=== PATIENT | female | born 1955 | race Two or more races ===

== ENCOUNTER → 2016-09-08 | Outpatient (CLI) | payer OTHER ==
[~2016-09-08] MED LIST: SYNT125T OR
[2016-09-08 21:37] LABS: ALBUMIN 4.1 GM/DL (3.2-5.2); ALBUMIN/GLOBULIN RATIO 1.28 (1.00-1.93); ALKALINE PHOSPHATASE 117 U/L (45-117); ALT/SGPT 66 U/L (12-78); ANION GAP 6 MEQ/L (8-16); AST/SGOT 40 U/L (15-37); BILIRUBIN,TOTAL 0.3 MG/DL (0.2-1.0); BLOOD UREA NITROGEN 13 MG/DL (7-18); CARBON DIOXIDE LEVEL 31 MEQ/L (21-32); CHLORIDE LEVEL 107 MEQ/L (98-107); CHOLESTEROL LEVEL 234 MG/DL (<200); CREATININE FOR GFR 0.74 MG/DL (0.55-1.02); FREE T4 0.84 NG/DL (0.76-1.46); GLOMERULAR FILTRATION RATE > 60.0 (>45); GLUCOSE, FASTING 92 MG/DL (80-110); POTASSIUM SERUM 4.2 MEQ/L (3.5-5.1); SODIUM LEVEL 144 MEQ/L (136-145); TOTAL PROTEIN 7.3 GM/DL (6.4-8.2); TRIGLYCERIDES LEVEL 139 MG/DL (<150)
== END ==
LOC: M WUC 15:50
PROVIDERS: ATTEND Internal Medicine
DX: E78.00 Pure hypercholesterolemia, unspecified (principal); R94.5 Abnormal results of liver function studies

== ENCOUNTER 2016-10-10 17:37 | Emergency (ER) | payer OTHER ==
[~2016-10-10] VITALS: Ht 160 cm; Wt 69.9 kg
[2016-10-10] MEDS ORDERED: LEVO100T5 (17:56)
[2016-10-10] MEDS ORDERED: ESCI10TA2 (17:56)
[2016-10-10] MEDS ORDERED: LOSA25TA8 (17:56)
[2016-10-10] MEDS ORDERED: ATOR1TAB19 (17:56)
[2016-10-10] MEDS ORDERED: ASPI81TA85 PO (17:56)
[2016-10-10] MEDS: ACETAMINOPHEN TAB 650MG DOSE (2X325MG) PO ONE (19:45)
[2016-10-10 19:59] LABS: BASO % 0.7 % (0.0-1.0); EOS # 0.3 K/mm3 (0.0-0.50); EOS % 5.5 % (0.0-3.0); LARGE UNSTAINED CELL # 0.2 K/mm3 (0.0-0.4); LARGE UNSTAINED CELL % 2.7 % (0.0-4.0); LYMPH # 2.1 K/mm3 (1.5-4.5); LYMPH % 34.3 % (24.0-44.0); MEAN CORPUSCULAR HEMOGLOBIN 29.2 pg (27.0-33.0); MEAN CORPUSCULAR HGB CONC 33.7 g/dl (32.0-36.5); MEAN CORPUSCULAR VOLUME 86.5 fl (80.0-96.0); MONO # 0.4 K/mm3 (0.0-0.8); MONO % 6.8 % (0.0-5.0); NEUTROPHILS # 3.1 K/mm3 (1.8-7.7); NEUTROPHILS % 49.9 % (36.0-66.0); PLATELET COUNT, AUTOMATED 218 k/mm3 (150-450); RED CELL DISTRIBUTION WIDTH 12.6 % (11.5-14.5); WHITE BLOOD COUNT 6.1 K/mm3 (4.0-10.0)
[2016-10-10 20:07] LABS: ALBUMIN 4.3 GM/DL (3.2-5.2); ALBUMIN/GLOBULIN RATIO 1.26 (1.00-1.93); ALKALINE PHOSPHATASE 127 U/L (45-117); ALT/SGPT 50 U/L (12-78); ANION GAP 10 MEQ/L (8-16); AST/SGOT 28 U/L (15-37); BILIRUBIN,DIRECT 0.1 MG/DL (0.0-0.2); BILIRUBIN,TOTAL 0.3 MG/DL (0.2-1.0); BLOOD UREA NITROGEN 23 MG/DL (7-18); CALCIUM LEVEL 9.1 MG/DL (8.8-10.2); CARBON DIOXIDE LEVEL 29 MEQ/L (21-32); CHLORIDE LEVEL 104 MEQ/L (98-107); CREATININE FOR GFR 0.82 MG/DL (0.55-1.02); GLOMERULAR FILTRATION RATE > 60.0 (>45); GLUCOSE, FASTING 88 MG/DL (80-110); POTASSIUM SERUM 4.1 MEQ/L (3.5-5.1); SODIUM LEVEL 143 MEQ/L (136-145); TOTAL PROTEIN 7.7 GM/DL (6.4-8.2)
[2016-10-10 20:34] LABS: ERYTHROCYTE SEDIMENTATION RATE 16 mm/hr (0-30)
[2016-10-10] MEDS: NS 1,000 ML IV ONE (20:45)
--- NOTE | 2016-10-10 21:40 | REPUSA ---
CLINICAL HISTORY: Headache. TECHNIQUE: Multiple axial CT images were obtained through brain without IV contrast material. COMMENTS: Compared to 04/16/16 study. The study shows normal configuration of sella turcica. 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 There are no intra or extra-axial collections. There is no mass effect or midline shift. There is no evidence of hematoma formation. No hydrocephalus is present. The ventricles are symmetrical. No abnormal calcifications are present. IMPRESSION: No acute intracranial pathology. 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 No interval change. Thank you for your kind referral of this patient.
[2016-10-10 23:29] VITALS: BP 111/77
--- NOTE | 2016-10-11 09:38 | REP ---
Chest x-ray: Two views. History: Dizziness. Intermittent chest pain. Findings: The lungs are well inflated and clear. Pleural angles are sharp. Heart is not felt to be enlarged. Pulmonary vasculature is not increased. No infiltrate is seen. There are minimal degenerative changes in the thoracic spine. EKG electrodes are seen. Impression: No active disease. Signed by Vu Lemus MD 10/11/2016 09:39 A
--- NOTE | 2016-10-11 19:53 | ECGEPIP ---
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
== END 2016-10-10 23:45 | disposition home or self-care (01) ==
LOC: M ED 18:55
DX: R51 Headache (principal); R42 Dizziness and giddiness; R07.9 Chest pain, unspecified

== ENCOUNTER → 2019-02-17 | Outpatient (REF) | payer MEDICARE, OTHER, SELFPAY ==
[~2019-02-17] MED LIST changes: +ASPI81TA85 PO; +ATOR1TAB19; +ESCI10TA2; +LEVO100T5; +LOSA25TA14
[2019-02-17 19:53] LABS: ALBUMIN 4.3 GM/DL (3.2-5.2); ALT/SGPT 67 U/L (12-78); BILIRUBIN,TOTAL 0.5 MG/DL (0.2-1.0); BLOOD UREA NITROGEN 16 MG/DL (7-18); CALCIUM LEVEL 9.7 MG/DL (8.8-10.2); CARBON DIOXIDE LEVEL 32 MEQ/L (21-32); CHLORIDE LEVEL 110 MEQ/L (98-107); CREATININE FOR GFR 0.79 MG/DL (0.55-1.30); GLOMERULAR FILTRATION RATE > 60.0 (>45); GLUCOSE, FASTING 77 MG/DL (70-100); POTASSIUM SERUM 4.6 MEQ/L (3.5-5.1); SODIUM LEVEL 146 MEQ/L (136-145); TOTAL PROTEIN 7.5 GM/DL (6.4-8.2)
[2019-02-17 19:57] LABS: BASO % 0.6 % (0.0-1.0); EOS # 0.4 10^3/uL (0.0-0.50); EOS % 6.5 % (0.0-3.0); HEMATOCRIT 39.9 % (36.0-47.0); HEMOGLOBIN 13.1 g/dl (12.0-15.5); LYMPH # 1.8 10^3/uL (1.5-4.5); LYMPH % 27.5 % (24.0-44.0); MEAN CORPUSCULAR HGB CONC 32.8 g/dl (32.0-36.5); MEAN CORPUSCULAR VOLUME 91.3 fl (80.0-96.0); MONO # 0.7 10^3/uL (0.0-0.8); MONO % 10.7 % (0.0-5.0); NEUTROPHILS # 3.5 10^3/uL (1.8-7.7); NEUTROPHILS % 54.5 % (36.0-66.0); PLATELET COUNT, AUTOMATED 211 10^3/uL (150-450); RED BLOOD COUNT 4.37 10^6/uL (4.00-5.40); WHITE BLOOD COUNT 6.5 10^3/uL (4.0-10.0)
[2019-02-22 00:06] LABS: Lyme Disease IgG Ab 18 kDa Ban Absent (.); Lyme Disease IgG Ab 23 kDa Ban Absent (.); Lyme Disease IgG Ab 28 kDa Ban Absent (.); Lyme Disease IgG Ab 30 kDa Ban Absent (.); Lyme Disease IgG Ab 39 kDa Ban Present (.); Lyme Disease IgG Ab 41 kDa Ban Present (.); Lyme Disease IgG Ab 45 kDa Ban Absent (.); Lyme Disease IgG Ab 58 kDa Ban Absent (.); Lyme Disease IgG Ab 66 kDa Ban Absent (.); Lyme Disease IgG Ab 93 kDa Ban Absent (.); Lyme Disease IgG West Blot Int Negative (.); Lyme Disease IgG/IgM Antibodie 1.48 ISR (0.00-0.90); Lyme Disease IgM Ab 23 kDa Ban Present (.); Lyme Disease IgM Ab 39 kDa Ban Absent (.); Lyme Disease IgM Ab 41 kDa Ban Present (.); Lyme Disease IgM Ab Quantitati 3.48 index (0.00-0.79); Lyme Disease IgM West Blot Int Positive (.)
== END ==
LOC: M LABDRWAD 19:22
PROVIDERS: ATTEND Physician Assistant
DX: A69.20 Lyme disease, unspecified (principal)

== ENCOUNTER → 2021-05-01 | Outpatient (CLI) | payer MEDICARE ==
[~2021-05-01] MED LIST changes: -ASPI81TA85 PO; +ASPI81TA86 PO; +ESCI10TA16; -ESCI10TA2; +PROHANCE 279.3MG/ML 15ML VIAL As Ordered ONE
--- NOTE | 2021-05-02 12:51 | REP ---
INDICATION: PANCREATIC CYST. Cyst and pseudocyst of the pancreas. COMPARISON: Comparison prior study is retrieved from December 28, 2020. Comparison sonography November 09, 2020. TECHNIQUE: MRI pancreas protocol without and with IV contrast. MRCP exam. Axial and coronal T1 and T2 weighted sequences include spin echo, fast spin echo, gradient echo, in and out of phase, 3D MRCP, and dynamically acquired sequential postcontrast enhanced images with T1 weighted fat sat sequences. Gadolinium enhancement dose is 14 mL of intravenous ProHance. FINDINGS: The there is no evidence of filling defect within the gallbladder on T2 weighted scans. The intrahepatic bile ducts are not dilated. The main pancreatic duct is again noted to be dilated into the level of the ampulla. No obstructive lesion is seen. The common bile duct is 0.7 cm in greatest diameter within normal range. The main pancreatic duct measures 5 mm and is considered moderately dilated. There are multiple small subcentimeter cysts in the pancreas which appear to communicate with the dilated main pancreatic duct. There is a cluster of these in the body of the pancreas which in aggregate measure up to 2.3 cm in greatest dimension. This corresponds with the cystic area seen on ultrasound and the cystic lesion described on MRI report from December 28, 2020. These findings are all felt to be unchanged. The tail of the pancreas contains a small cyst measuring 9 mm in diameter which is also unchanged from the December 28, 2020 study. No hypervascular or nonenhancing solid mass is appreciated in the pancreas on pre or postcontrast imaging. There is no evidence of upper abdominal lymphadenopathy. No renal, splenic, or a [place] mass lesion is observed. Normal adrenal glands are seen bilaterally. There is no evidence of ascites. There is no evidence of choledocholithiasis or pancreatic duct calculus. IMPRESSION: Moderately dilated main pancreatic duct without obstructive etiology. CBD at the upper range of normal in size 7 mm. There is a septated cystic area in the body of the pancreas which is unchanged from the recent prior study and there are several small pancreatic tail cysts also unchanged. Suggest six-month follow-up MRI study. 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 <Electronically signed by Heath Lemus > 05/02/21 1510
== END ==
LOC: M RAD 16:02
PROVIDERS: ATTEND Internal Medicine Gastroenterology
DX: K86.3 Pseudocyst of pancreas (principal)
CPT/HCPCS: 74183; A9576

== ENCOUNTER 2021-12-27 09:31 | Emergency (ER) | payer MEDICARE ==
[~2021-12-27] VITALS: Ht 160 cm; Wt 73.6 kg
[~2021-12-27 09:31] MED LIST changes: +LOSA25TA13; -LOSA25TA14; -PROHANCE 279.3MG/ML 15ML VIAL As Ordered ONE
[2021-12-27 10:22] LABS: BASO % 0.3 % (0.0-1.0); EOS # 0.1 10^3/uL (0.0-0.5); EOS % 0.8 % (0.0-3.0); HEMATOCRIT 34.6 % (36.0-47.0); HEMOGLOBIN 10.2 g/dl (12.0-15.5); LYMPH # 1.3 10^3/uL (1.5-5.0); LYMPH % 10.8 % (24.0-44.0); MEAN CORPUSCULAR HEMOGLOBIN 23.6 pg (27.0-33.0); MEAN CORPUSCULAR HGB CONC 29.5 g/dl (32.0-36.5); MEAN CORPUSCULAR VOLUME 79.9 fl (80.0-96.0); MONO # 1.1 10^3/uL (0.0-0.8); MONO % 9.1 % (2.0-8.0); NEUTROPHILS # 9.1 10^3/uL (1.5-8.5); NEUTROPHILS % 78.7 % (36.0-66.0); PLATELET COUNT, AUTOMATED 252 10^3/uL (150-450); RED BLOOD COUNT 4.33 10^6/uL (4.00-5.40); WHITE BLOOD COUNT 11.6 10^3/uL (4.0-10.0)
[2021-12-27 10:49] LABS: ALBUMIN 4.3 GM/DL (3.2-5.2); ALT/SGPT 69 U/L (12-78); BILIRUBIN,DIRECT 0.2 MG/DL (0.0-0.2); BILIRUBIN,TOTAL 0.9 MG/DL (0.2-1.0); BLOOD UREA NITROGEN 13 MG/DL (7-18); CALCIUM LEVEL 9.5 MG/DL (8.8-10.2); CARBON DIOXIDE LEVEL 28 MEQ/L (21-32); CHLORIDE LEVEL 107 MEQ/L (98-107); CREATININE FOR GFR 0.77 MG/DL (0.55-1.30); GLOMERULAR FILTRATION RATE > 60.0 (>45); GLUCOSE, FASTING 121 MG/DL (70-100); LIPASE 308 U/L (73-393); POTASSIUM SERUM 3.9 MEQ/L (3.5-5.1); SODIUM LEVEL 142 MEQ/L (136-145); TOTAL PROTEIN 8.1 GM/DL (6.4-8.2)
[2021-12-27] MEDS ORDERED: ONDANSETRON 4MG/2ML VIAL IV ONE (12:05)
[2021-12-27] MEDS ORDERED: NS 1,000 ML IV ONE (12:05)
[2021-12-27] MEDS ORDERED: ISOVUE-370 76% 100ML VIAL As Ordered ONE (12:16)
[2021-12-27 14:20] VITALS: BP 154/87
== END 2021-12-27 14:26 | disposition home or self-care (01) ==
LOC: M ED 09:31
DX: R19.5 Other fecal abnormalities (principal); K52.9 Noninfective gastroenteritis and colitis, unspecified; K86.2 Cyst of pancreas; E78.5 Hyperlipidemia, unspecified; Z86.73 Personal history of transient ischemic attack (TIA), and cerebral infarction without residual deficits; E03.9 Hypothyroidism, unspecified; Z79.82 Long term (current) use of aspirin; Z79.890 Hormone replacement therapy; Z79.899 Other long term (current) drug therapy
CPT/HCPCS: 70450; 74177; 80048; 80076; 83690; 85025; 86850; 86900; 86901; 96361; 96374; 99284; J2405; Q9967

== ENCOUNTER → 2021-12-31 | Outpatient (REF) | payer MEDICARE | LOC: M LAB REF 14:03 | PROVIDERS: ATTEND Physician Assistant | DX: R19.7 Diarrhea, unspecified (principal) ==

== ENCOUNTER → 2023-06-11 | Outpatient (CLI) | payer MEDICARE | LOC: M PLARAD 09:57 | PROVIDERS: ATTEND Internal Medicine Gastroenterology | DX: Z53.9 Procedure and treatment not carried out, unspecified reason (principal) ==